=== PATIENT | male | born 1970 | race Caucasian/White ===

== ENCOUNTER 2022-02-12 10:52 | Outpatient (REF) | payer OTHER, SELFPAY ==
--- NOTE | ~2022-02-12 | XR_ITS ---
EXAMINATION: XR HIP, RIGHT CLINICAL INFORMATION: S76.011A - Strain of muscle, fascia and tendon of right hip. COMPARISON: None TECHNIQUE: Frontal view pelvis is performed along with AP and frog-lateral projections right hip. FINDINGS: No fracture or dislocation. No diastases SI joints or pubis. Hip shows no erosive change or chondrocalcinosis. Bowel gas unremarkable. There are degenerative changes suggested lower lumbar spine. XR/XR hip RT w [id number] IMPRESSION: No fracture or arthropathy. Probable degenerative changes lower lumbar spine.
[2022-02-12 14:08] LABS: Hemoglobin 14.7 g/dl (14.0-18.0); Mean Corpuscular HGB Conc 34.2 g/dl (31.0-36.0); Mean Corpuscular Hemoglobin 33.1 pg (27.0-33.0); Mean Corpuscular Volume 96.8 fL (80.0-98.0); Platelet Count 207 X10*3/uL (160-400); Red Blood Count 4.44 X10*6/uL (4.60-5.80); Red Cell Distribution Width 12.5 % (11.0-16.0); White Blood Count 11.2 X10*3/uL (4.8-10.8)
[2022-02-12 14:18] LABS: Alanine Aminotransferase 17 U/L (0-40); Albumin Level 4.6 g/dL (3.5-5.0); Alkaline Phosphatase 70 U/L (39-117); Anion Gap 14 (12-20); Aspartate Amino Transferase 27 U/L (5-37); Bilirubin Direct 0.5 mg/dL (0.0-0.5); Bilirubin Total 1.2 mg/dL (0.0-1.0); Blood Urea Nitrogen 23 mg/dL (9-16); Calcium 10.3 mg/dL (8.4-10.2); Carbon Dioxide 26 mmol/L (22-29); Chloride 101 mmol/L (96-108); Cholesterol 226 mg/dL; Estimated Glomerular Filt Rate > 60; Glucose Random 102 mg/dL (60-115); HDL Cholesterol 85 mg/dL; LDL Cholesterol Calculated 126 mg/dl; Potassium 4.3 mmol/L (3.3-5.1); Sodium 137 mmol/L (135-145); Total Protein 7.6 g/dL (6.5-8.0); Triglycerides 77 mg/dL
[2022-02-12 14:41] LABS: Thyroid Stimulating Hormone 1.21 uIU/mL (0.32-4.0)
[2022-02-12 14:44] LABS: Erythrocyte Sedimentation Rate 2 MM/HR (0-15)
== END 2022-02-12 10:53 | disposition home or self-care (01) ==
LOC: HO.HMGCX 10:52
PROVIDERS: Visit Provider Internal Medicine
DX: S72.011A Unspecified intracapsular fracture of right femur, initial encounter for closed fracture (principal)
CPT/HCPCS: 36415; 73502; 80048; 80061; 80076; 84443; 85027; 85652